=== PATIENT | male | born 1940 | race Caucasian/White ===

== ENCOUNTER 2022-08-09 10:02 | Outpatient (CLI) | payer MEDICARE, BC ==
[2022-08-09 11:24] LABS: Hemoglobin 12.8 g/dL (13.5-17.5); Mean Corpuscular HGB CONC 32.2 g/dL (32.0-36.0); Mean Corpuscular Hemoglobin 33.2 pg (27.0-33.0); Mean Corpuscular Volume 102.8 fl (81.2-95.1); Mean Platelet Volume 8.7 fl (7.4-10.4); Platelet Count 234 10x3/uL (150-450); RBC Distribution Width 13.4 % (11.5-14.5); Red Blood Cell (RBC) Count 3.86 10x6/uL (4.32-5.72); White Blood Cell (WBC) Count 6.7 10x3/uL (3.5-10.5)
[2022-08-09 11:55] LABS: INR-International Normal Ratio 1.1; Prothrombin Time 11.7 sec (9.5-12.1)
[2022-08-09 12:39] LABS: Anion Gap 17 mmol/L (10-20); BUN (Urea Nitrogen) 15 mg/dL (8.4-25.7); Calc. Creatinine Clearance 0 mL/min (70-130); Carbon Dioxide 19 mmol/L (23-31); Chloride 106 mmol/L (98-107); Estimated GFR 63; Glucose 82 mg/dL (83-110); Potassium 5.1 mmol/L (3.5-5.1); Sodium 137 mmol/L (136-145)
[2022-08-10 10:25] VITALS: BP 118/56; TEMP 98.2
== END 2022-08-09 10:03 | disposition home or self-care (01) ==
LOC: CSHLAB 10:02
PROVIDERS: ATTEND Specialist
DX: Z01.818 Encounter for other preprocedural examination (principal)
CPT/HCPCS: 80048; 85027; 85610; 93005; 93010

== ENCOUNTER 2022-08-10 09:51 | Observation (INO) | payer MEDICARE, BC ==
[~2022-08-10 09:51] MED LIST: Iopamidol 300 61% 100 ML VIAL FS ONE
[2022-08-10] MEDS ORDERED: Phenylephrine 10 MG/ML VIAL ONE (11:03)
[2022-08-10] MEDS ORDERED: Phenylephrine 40 MG/NS 250 ML 250 ML ONE (11:04)
[2022-08-10] MEDS ORDERED: Atropine Sulfate 0.4 mg/1 ml Vial ONE ×2 (11:04→12:43)
[2022-08-10] MEDS ORDERED: Lidocaine 1% PF 5 ML VIAL ONE (11:06)
[2022-08-10] MEDS ORDERED: Heparin 10,000 UNITS/ 10 ML VIAL ONE (11:08)
[2022-08-10] MEDS ORDERED: Aspirin 325 MG TAB ONE (11:31)
[2022-08-10] MEDS ORDERED: Ascorbic Acid 500 mg Chewable Tablet ONE (11:33)
[2022-08-10] MEDS ORDERED: Fentanyl 100 MCG/2 ML VIAL ONE (12:03)
[2022-08-10] MEDS ORDERED: Midazolam HCl 2 mg/2 ml Vial ONE (12:03)
[2022-08-10] MEDS ORDERED: PHENYLEPHRINE-NS 100 MCG/ML 10 ML SYRINGE ONE (12:06)
[2022-08-10] MEDS ORDERED: ACETAMINOPHEN 650 MG PO PRN (13:10)
[2022-08-10] MEDS ORDERED: Nitroglycerin 0.4 MG TAB (25 Tab Bottle) SL PRN (13:10)
[2022-08-10] MEDS ORDERED: Milk Of Magnesia 30 ML UDCUP PO PRN (13:16)
[2022-08-10] MEDS ORDERED: Sodium Chloride 0.9% 1,000 ML IV SCH (13:30)
[2022-08-10] MEDS ORDERED: Clopidogrel Bisulfate 300 MG TAB ONE (13:33)
[2022-08-10] MEDS ORDERED: Warfarin Sodium 5 MG TAB PO SCH (17:00)
[2022-08-10] MEDS: Gabapentin 300 MG CAP PO SCH ×2 (17:12→20:31)
[2022-08-10] MEDS: Amitriptyline HCl 25 MG TAB PO SCH (20:31)
[2022-08-10] MEDS: Magnesium Oxide 400 MG TAB PO SCH (20:31)
[2022-08-10] MEDS: Fish Oil 1,000 MG CAP PO SCH (20:31)
[2022-08-10] MEDS: Carvedilol 6.25 MG TAB PO SCH (20:32)
[2022-08-10] MEDS ORDERED: SIMVASTATIN 80 MG PO SCH (21:00)
[2022-08-10] MEDS ORDERED: DOPamine 400 MG/D5W 250 ML 250 ML IVPB SCH (22:00)
[2022-08-11 05:23] LABS: #Eosinphils 0.3 10x3/uL (0.0-0.5); #Monocytes 1.1 10x3/uL (0.0-1.1); #Neutrophils 7.4 10x3/uL (1.5-8.4); %Basophils 0.2 % (0.0-2.0); %Eosinophils 2.5 % (0.0-6.0); %Monocytes 10.4 % (0.0-10.0); %Neutrophils 72.4 % (40.0-75.0); Hemoglobin 12.3 g/dL (13.5-17.5); Mean Corpuscular HGB CONC 32.5 g/dL (32.0-36.0); Mean Corpuscular Hemoglobin 33.2 pg (27.0-33.0); Mean Corpuscular Volume 102.4 fl (81.2-95.1); Mean Platelet Volume 8.3 fl (7.4-10.4); Platelet Count 197 10x3/uL (150-450); RBC Distribution Width 13.2 % (11.5-14.5); White Blood Cell (WBC) Count 10.2 10x3/uL (3.5-10.5)
[2022-08-11 05:29] LABS: Prothrombin Time 10.9 sec (9.5-12.1)
[2022-08-11 05:36] LABS: ALT (SGPT) 28 U/L (8-55); AST (SGOT) 40 U/L (5-34); Albumin 4.1 g/dL (3.4-4.8); Alkaline Phosphatase 48 U/L (40-110); Anion Gap 15 mmol/L (10-20); BUN (Urea Nitrogen) 15 mg/dL (8.4-25.7); Bilirubin, Total 0.6 mg/dL (0.2-1.2); Calc. Creatinine Clearance 92 mL/min (70-130); Calcium 9.2 mg/dL (7.8-10.44); Carbon Dioxide 23 mmol/L (23-31); Chloride 103 mmol/L (98-107); Estimated GFR 68; Globulin 2.7 g/dL (2.4-3.5); Glucose 129 mg/dL (83-110); Potassium 5.3 mmol/L (3.5-5.1); Protein, Total 6.8 g/dL (5.8-8.1); Sodium 136 mmol/L (136-145)
[2022-08-11] MEDS: CO Q-10 CAPSULE 50 MG PO SCH (07:59)
[2022-08-11] MEDS: Cyanocobalamin (Vitamin B-12) 1,000 MCG TAB PO SCH (07:59)
[2022-08-11] MEDS: Gabapentin 300 MG CAP PO SCH ×3 (07:59→19:55)
[2022-08-11] MEDS: Magnesium Oxide 400 MG TAB PO SCH ×2 (07:59→19:55)
[2022-08-11] MEDS: Aspirin 81 mg Enteric Coated Tablet PO SCH (07:59)
[2022-08-11] MEDS: Ascorbic Acid 500 mg Chewable Tablet PO SCH (07:59)
[2022-08-11] MEDS: Clopidogrel Bisulfate 75 MG TAB PO SCH (08:00)
[2022-08-11] MEDS: Cholecalciferol 1,000 UNITS (25 MCG) TAB PO SCH (08:00)
[2022-08-11] MEDS: Empagliflozin 25 MG TAB PO SCH (08:00)
[2022-08-11] MEDS: Pioglitazone HCl 15 MG TAB PO SCH (08:01)
[2022-08-11] MEDS: Glimepiride 2 MG TAB PO SCH (08:01)
[2022-08-11] MEDS: Fish Oil 1,000 MG CAP PO SCH ×2 (08:02→19:54)
[2022-08-11] MEDS: Acetaminophen 325 MG TAB PO PRN ×2 (09:00→14:00)
[2022-08-11] MEDS ORDERED: EPLERENONE 25 MG PO SCH (09:00)
[2022-08-11] MEDS: Carvedilol 6.25 MG TAB PO SCH ×2 (10:10→19:56)
[2022-08-11] MEDS: Ezetimibe 10 MG TAB PO SCH (10:45)
[2022-08-11] MEDS: Methyl Salicylate/Menthol 85 GM TUBE TOP PRN ×2 (16:45→19:55)
[2022-08-11] MEDS ORDERED: Warfarin Sodium 5 MG TAB PO SCH (17:00)
[2022-08-11] MEDS: Amitriptyline HCl 25 MG TAB PO SCH (19:55)
[2022-08-11] MEDS: Lisinopril 5 MG TAB PO SCH (19:56)
[2022-08-12 05:19] VITALS: TEMP 98.1; BMI 35.5
[2022-08-12 05:31] LABS: INR-International Normal Ratio 1.1; Prothrombin Time 11.3 sec (9.5-12.1)
[2022-08-12] MEDS: Gabapentin 300 MG CAP PO SCH (07:39)
[2022-08-12] MEDS: Glimepiride 2 MG TAB PO SCH (07:40)
[2022-08-12] MEDS: Aspirin 81 mg Enteric Coated Tablet PO SCH (07:41)
[2022-08-12] MEDS: CO Q-10 CAPSULE 50 MG PO SCH (07:41)
[2022-08-12] MEDS: Cholecalciferol 1,000 UNITS (25 MCG) TAB PO SCH (07:41)
[2022-08-12] MEDS: Magnesium Oxide 400 MG TAB PO SCH (07:42)
[2022-08-12] MEDS: Clopidogrel Bisulfate 75 MG TAB PO SCH (07:42)
[2022-08-12] MEDS: Ascorbic Acid 500 mg Chewable Tablet PO SCH (07:42)
[2022-08-12] MEDS: Cyanocobalamin (Vitamin B-12) 1,000 MCG TAB PO SCH (07:42)
[2022-08-12] MEDS: Fish Oil 1,000 MG CAP PO SCH (07:43)
[2022-08-12] MEDS: Pioglitazone HCl 15 MG TAB PO SCH (07:43)
[2022-08-12] MEDS: Empagliflozin 25 MG TAB PO SCH (07:44)
[2022-08-12] MEDS: Acetaminophen 325 MG TAB PO PRN (08:17)
[2022-08-12] MEDS: Methyl Salicylate/Menthol 85 GM TUBE TOP PRN (08:17)
[2022-08-12] MEDS: Lisinopril 5 MG TAB PO SCH (10:09)
[2022-08-12] MEDS: Carvedilol 6.25 MG TAB PO SCH (10:10)
[2022-08-12 10:11] VITALS: BP 139/51
[2022-08-12] MEDS: Ezetimibe 10 MG TAB PO SCH (12:13)
== END 2022-08-12 12:30 | disposition home or self-care (01) ==
LOC: CSHSDC 09:51 → INTOOBSV 13:58 → CSHIMCU 13:58
PROVIDERS: ADMIT Specialist; ATTEND Specialist
DX: I65.23 Occlusion and stenosis of bilateral carotid arteries (principal); I25.10 Atherosclerotic heart disease of native coronary artery without angina pectoris; I73.9 Peripheral vascular disease, unspecified; E11.40 Type 2 diabetes mellitus with diabetic neuropathy, unspecified; E78.2 Mixed hyperlipidemia; I48.20 Chronic atrial fibrillation, unspecified; I50.32 Chronic diastolic (congestive) heart failure; I11.0 Hypertensive heart disease with heart failure; E11.42 Type 2 diabetes mellitus with diabetic polyneuropathy; G47.30 Sleep apnea, unspecified; I77.9 Disorder of arteries and arterioles, unspecified; I49.5 Sick sinus syndrome; Z90.49 Acquired absence of other specified parts of digestive tract; Z88.8 Allergy status to other drugs, medicaments and biological substances; Z88.5 Allergy status to narcotic agent; Z79.84 Long term (current) use of oral hypoglycemic drugs; Z79.899 Other long term (current) drug therapy; Z79.82 Long term (current) use of aspirin; Z79.01 Long term (current) use of anticoagulants; Z95.2 Presence of prosthetic heart valve; Z95.1 Presence of aortocoronary bypass graft; Z88.3 Allergy status to other anti-infective agents
CPT/HCPCS: 36215; 36222; 36225; 36227; 37215; 37252; 37253; 75710; 80053; 85025; 85347; 85610 ×2; 93005 ×2; 93923; 94760 ×2; 94762; 96372 ×3; C1725; C1753; C1760; C1769 ×2; C1876; C1884; C1894; G0378 ×3; 93010; 99152; 99153; J0461; J1265; J1644; J1650; J2250; J2370; J3010; J7050; Q9967